=== PATIENT | female | born 1950 | race Hispanic/Latino ===

== ENCOUNTER 2020-12-28 19:04 | Emergency (ER) | payer MEDICARE ==
[~2020-12-28] VITALS: Ht 152.4 cm; Wt 68.0 kg
[2020-12-28] MEDS ORDERED: TESSALON PERLE100 MG PO ×2 (19:38→20:17)
[2020-12-28] MEDS ORDERED: PROVENTIL HFA6.7 GM INH ×2 (19:38→20:17)
[2020-12-28] MEDS ORDERED: PREDNISONE20 MG PO ×2 (19:38→20:17)
[2020-12-28 20:18] VITALS: BP 139/69
== END 2020-12-28 20:18 | disposition home or self-care (01) ==
LOC: FSED 19:23
DX: R05.9 Cough, unspecified (principal); J40 Bronchitis, not specified as acute or chronic; I10 Essential (primary) hypertension; E03.9 Hypothyroidism, unspecified; K21.9 Gastro-esophageal reflux disease without esophagitis; F32.A Depression, unspecified
CPT/HCPCS: 71045; 99283